=== PATIENT | male | born 1950 | race Caucasian/White ===

== ENCOUNTER 2017-07-05 21:57 | Emergency (ER) | payer BC ==
[2017-07-05 22:05] VITALS: BP 125/72
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
[2017-07-05] MEDS ORDERED: OXYCODONE/APAP 5/325MG PREPACK#4 BTL TAKEHOME ONE (22:43)
[2017-07-05] MEDS ORDERED: OXYCODONE/APAP 5/325 TAB PO ONE (22:43)
== END 2017-07-05 22:56 | disposition home or self-care (01) ==
LOC: EDUNIT#
DX: R42 Dizziness and giddiness (principal); S79.922D Unspecified injury of left thigh, subsequent encounter; V19.9XXD Pedal cyclist (driver) (passenger) injured in unspecified traffic accident, subsequent encounter

== ENCOUNTER → 2017-07-05 | Outpatient (CLI) | payer BC | LOC: BMCIMAGING 17:37 | PROVIDERS: ATTEND Family Medicine | DX: M25.551 Pain in right hip (principal); M16.12 Unilateral primary osteoarthritis, left hip; Y93.55 Activity, bike riding; Z96.651 Presence of right artificial knee joint ==

== ENCOUNTER → 2017-09-17 | Outpatient (CLI) | payer BC ==
[~2017-09-17] MED LIST: TRANEXAMIC ACID 3,000 MG/50 ML BAG IRR ONE; VANCOMYCIN 1 GM VIAL ONE
== END ==
LOC: FIMAGING 09:45
PROVIDERS: ATTEND Orthopaedic Surgery
DX: S70.12XA Contusion of left thigh, initial encounter (principal)
CPT/HCPCS: J3370

== ENCOUNTER → 2017-12-07 | Outpatient (CLI) | payer BC | LOC: FIMAGING 13:43 | PROVIDERS: ATTEND Orthopaedic Surgery | DX: M25.451 Effusion, right hip (principal); M16.12 Unilateral primary osteoarthritis, left hip; Z96.641 Presence of right artificial hip joint ==

== ENCOUNTER → 2018-04-18 | Outpatient (CLI) | payer BC | LOC: BMCIMAGING 10:24 ==

== ENCOUNTER → 2018-04-18 | Outpatient (CLI) | payer BC | LOC: BMCIMAGING 10:27 | PROVIDERS: ATTEND Family Medicine | DX: S29.9XXA Unspecified injury of thorax, initial encounter (principal) ==